=== PATIENT | male | born 1960 | race Caucasian/White ===

== ENCOUNTER 2017-12-14 10:14 | Emergency (ER) | payer MEDICARE ==
--- NOTE | 2017-12-14 12:24 | UC ---
UC General HPI - HPI Summary HPI Summary: patient last seen pcp about 2 years ago---patient has an I&D of rectal abscess 2 years ago and was being evaluated for BPH---Patient reports about 6-8 months of getting sweets, and difficultly starting stopping stream and dribbling-no pain ----patient reports no fevers, no weight loss no change in appetite--no rectal drainage and change in stools-- - History of Current Complaint Hx Obtained From: Patient Onset/Duration: Gradual Onset, Lasting Weeks, Still Present Timing: Constant Onset Severity: Mild Current Severity: None Pain Intensity: 0 <Ofelia Montenegro - Last Filed: 12/14/17 12:19> <Sarah Bae - Last Filed: 12/14/17 14:22> - History of Current Complaint Chief Complaint: UCGeneralIllness Stated Complaint: INFECTION Time Seen by Provider: 12/14/17 11:13 - Allergy/Home Medications Allergies/Adverse Reactions: Allergies Allergy/AdvReac Type Severity Reaction Status Date / Time No Known Allergies Allergy Verified 02/19/16 14:56 PMH/Surg Hx/FS Hx/Imm Hx Previously Healthy: No - Surgical History Surgical History: Yes Surgery Procedure, Year, and Place: 2005 AND 2010 CERVICAL NECK SURGERY, [facility], rectal abcess id - Family History Known Family History: Positive: Cardiac Disease, Hypertension - Social History Occupation: Disabled Lives: With Family Alcohol Use: None Substance Use Type: None Smoking Status (MU): Former Smoker <Ofelia Montenegro - Last Filed: 12/14/17 12:19> Review of Systems Constitutional: Other - sweating Skin: Negative Eyes: Negative ENT: Negative Respiratory: Negative Cardiovascular: Negative Gastrointestinal: Negative Genitourinary: Frequency, Urgency Motor: Negative Neurovascular: Negative Musculoskeletal: Negative Neurological: Negative Psychological: Negative Is Patient Immunocompromised?: No All Other Systems Reviewed And Are Negative: Yes <Ofelia Montenegro - Last Filed: 12/14/17 12:19> Physical Exam Triage Information Reviewed: Yes Appearance: Well-Appearing, No Pain Distress, Well-Nourished Vital Signs: Initial Vital Signs Temp 97.9 F 12/14/17 10:29 Pulse 74 12/14/17 10:29 Resp 16 12/14/17 10:29 BP 135/90 12/14/17 10:29 Pulse Ox 96 12/14/17 10:29 Vital Signs Reviewed: Yes Eye Exam: Normal Eyes: Positive: Conjunctiva Clear ENT Exam: Normal ENT: Positive: Normal ENT inspection, Hearing grossly normal, Pharynx normal, TMs normal, Uvula midline. Negative: Nasal congestion, Nasal drainage, Tonsillar swelling, Tonsillar exudate, Trismus, Muffled voice, Hoarse voice, Dental tenderness, Sinus tenderness Dental Exam: Normal Neck exam: Normal Neck: Positive: Supple, Nontender, No Lymphadenopathy Respiratory Exam: Normal Respiratory: Positive: Chest non-tender, Lungs clear, Normal breath sounds, No respiratory distress, No accessory muscle use Cardiovascular Exam: Normal Cardiovascular: Positive: RRR, No Murmur, Pulses Normal, Brisk Capillary Refill Abdominal Exam: Normal Abdomen Description: Positive: Nontender, No Organomegaly, Soft. Negative: CVA Tenderness (R), CVA Tenderness (L) Bowel Sounds: Positive: Present Musculoskeletal Exam: Normal Musculoskeletal: Positive: Strength Intact, ROM Intact, No Edema Neurological Exam: Normal Neurological: Positive: Alert, Muscle Tone Normal Psychological Exam: Normal Skin Exam: Normal <Ofelia Montenegro - Last Filed: 12/14/17 12:19> Vital Signs: Initial Vital Signs Temp 97.9 F 12/14/17 10:29 Pulse 74 12/14/17 10:29 Resp 16 12/14/17 10:29 BP 135/90 12/14/17 10:29 Pulse Ox 96 12/14/17 10:29 <Sarah Bae - Last Filed: 12/14/17 14:22> Course/Dx - Course Course Of Treatment: lab studies--call and arraged a follow up appoint met for him at [facility] (his request ) December 22 at 10:20--patient advised to go to emergency department for increase or worsening in symptoms - Differential Dx - Multi-Symptom Provider Diagnoses: dysuria, bph <Ofelia Montenegro - Last Filed: 12/14/17 12:19> Discharge <Ofelia Montenegro - Last Filed: 12/14/17 12:19> <Sarah Bae - Last Filed: 12/14/17 14:22> - Discharge Plan Condition: Stable Disposition: HOME Patient Education Materials: Benign Prostatic Hypertrophy (ED) Referrals: [facility] [Provider Group] - 12/22/17 10:10 am Attestation Statement User Type: Provider - I was available for consult. This patient was seen by the AARTI. The patient was not presented to, seen by, or examined by me. Rachelle <Sarah Bae - Last Filed: 12/14/17 14:22>
[2017-12-14 12:56] VITALS: BP 120/76
[2017-12-14 16:30] LABS: ABS Basophils 0 10^3/ul (0-0.2); ABS Eosinophils 0.3 10^3/ul (0-0.6); ABS Lymphocytes 2.1 10^3/ul (1.0-4.8); ABS Monocytes 0.4 10^3/ul (0-0.8); ABS Neutrophils 3.9 10^3/ul (1.5-7.7); ABS Nucleated RBC 0 10^3/ul; Eosinophil % 3.8 % (0-6); Hematocrit 49 % (42-52); Hemoglobin 16.9 g/dl (14.0-18.0); Lymphocyte % 31.5 % (25-47); Mean Corpuscular HGB Conc 34 g/dl (31-36); Mean Corpuscular Hemoglobin 31 pg (27-31); Mean Corpuscular Volume 91 fL (80-94); Mean Platelet Volume 9 um3 (7.4-10.4); Nucleated Red Blood Cells % 0.1; Platelet Count 228 10^3/ul (150-450); Red Blood Count 5.44 10^6/ul (4.0-5.4); Red Cell Distribution Width 13 % (10.5-15); White Blood Count 6.6 10^3/ul (3.5-10.8)
[2017-12-14 16:54] LABS: EGFR Non-African American 74.2 (>60)
--- NOTE | 2017-12-15 07:22 | UC ---
- Progress Note Progress Note: Reviewed labs ordered at time of visit with diagnosis of benign prostatic hypertrophy. His labs are overall normal, but he does have very mild elevation of his liver function tests. According to notes, he is planning to establish care at [facility]; ensure that he schedules a visit within the next 2 to 3 weeks to follow up on this elevation.
== END 2017-12-14 12:43 | disposition home or self-care (01) ==
LOC: UCEAST 10:14
DX: N40.1 Benign prostatic hyperplasia with lower urinary tract symptoms (principal); R30.0 Dysuria; R35.0 Frequency of micturition; R39.15 Urgency of urination; R61 Generalized hyperhidrosis; Z87.891 Personal history of nicotine dependence
CPT/HCPCS: 36415; 80053; 81003; 84153; 85025; 85652; 86140; 87086; 87491; 87591; 99211; G0463